=== PATIENT | male | born 1965 | race Caucasian/White ===

== ENCOUNTER 2017-04-23 19:54 | Emergency (ER) | payer SELFPAY ==
[~2017-04-23] VITALS: Ht 175.3 cm; Wt 68.0 kg
[2017-04-23 19:55] VITALS: BP 111/74
--- NOTE | 2017-04-23 20:09 | Emergency Room Report ---
History of Present Illness General Chief Complaint: Altered Level of Consciousness Source: Patient, EMS Present Illness HPI Patient was brought in by paramedics for altered mentation Upon arrival the patient is resting comfortably Responsive to our physical stimuli Patient however is unable to provide appropriate history Paramedics report the patient was in the street and was contacted by the [place] unknown regarding any obvious trauma History of present illness is limited Allergies: Coded Allergies: No Known Allergies (Unverified , 04/23/17) Patient History Limited by: medical condition Past Medical History: see triage record Pertinent Family History: unable to obtain Reviewed Nursing Documentation: PMH: Agreed, PSxH: Agreed Nursing Documentation-PM Past Medical History: No History, Except For History Of Psychiatric Problem: Yes - Depression Review of Systems All Other Systems: limited - Other than the ones mentioned in the history of present illness all others are reviewed however they do stay limited due to the patient's mental status Physical Exam Vital Signs Date Time Temp Pulse Resp B/P (MAP) Pulse Ox O2 Delivery O2 Flow Rate FiO2 04/23/17 19:44 97.9 82 17 111/74 98 Room Air Sp02 EP Interpretation: reviewed, normal General Appearance: no apparent distress Head: normocephalic, atraumatic Eyes: bilateral eye PERRL, bilateral eye EOMI ENT: normal pharynx Neck: supple Respiratory: lungs clear Cardiovascular #1: no edema Gastrointestinal: non tender, soft Musculoskeletal: other - no obvious focal deficit Neurologic: responsive - To physical stimuli Skin: other - disheveled Lymphatic: no adenopathy Medical Decision Making Last Vital Signs Date Time Temp Pulse Resp B/P (MAP) Pulse Ox O2 Delivery O2 Flow Rate FiO2 04/23/17 19:55 97.9 17 111/74 98 Room Air 04/23/17 19:44 82 RAFY SANCHEZ D.O. Apr 23, 2017 20:09
[2017-04-23 20:17] LABS: BASOPHILS % (AUTO) 1.4 % (0.0-2.0); LYMPHOCYTES % (AUTO) 37.7 % (20.0-45.0); MEAN CORPUSCULAR HEMOGLOBIN 29.2 PG (27.0-31.0); MEAN CORPUSCULAR HGB CONC 31.7 G/DL (32.0-36.0); MEAN CORPUSCULAR VOLUME 92 FL (80-99); MEAN PLATELET VOLUME 6.2 FL (6.5-10.1); MONOCYTES % (AUTO) 6.9 % (1.0-10.0); NEUTROPHILS % (AUTO) 54.1 % (45.0-75.0); PLATELET COUNT 213 K/UL (150-450); RED BLOOD COUNT 4.24 M/UL (4.70-6.10); RED CELL DISTRIBUTION WIDTH 14.4 % (11.6-14.8); WHITE BLOOD COUNT 5.4 K/UL (4.8-10.8)
[2017-04-23 20:26] LABS: ALANINE AMINOTRANSFERASE 25 U/L (12-78); ALBUMIN/GLOBULIN RATIO 0.7 (1.0-2.7); ALCOHOL < 3 mg/dL; ANION GAP 8 mmol/L (5-15); ASPARTATE AMINO TRANSFERASE 26 U/L (15-37); CALCIUM 9.1 MG/DL (8.5-10.1); CARBON DIOXIDE 27 MMOL/L (21-32); CHLORIDE 105 MMOL/L (98-107); CREATININE 1.4 MG/DL (0.55-1.30); GLOMERULAR FILTRATION RATE 53.6 mL/min (>60); POTASSIUM 3.8 MMOL/L (3.5-5.1); SODIUM 140 MMOL/L (136-145); TOTAL PROTEIN 7.8 G/DL (6.4-8.2)
[2017-04-23 21:30] VITALS: BP 132/76
[2017-04-24 00:30] VITALS: BP 123/74
[2017-04-24 02:25] VITALS: BP 120/74
[2017-04-24 03:30] VITALS: BP 118/75
--- NOTE | 2017-04-24 05:54 | Emergency Room Report ---
Physical Exam Vital Signs Date Time Temp Pulse Resp B/P (MAP) Pulse Ox O2 Delivery O2 Flow Rate FiO2 04/23/17 19:44 97.9 82 17 111/74 98 Room Air Medical Decision Making Diagnostic Impression: Primary Impression: Substance abuse Additional Impression: Altered level of consciousness ER Course Hospital Course 52-year-old M presents to ED with altered mental status Clinical course Patient initially seen and evaluated by Dr Romeo; please see his note for full history physical Labs reviewed-electrolytes okay, no leukocytosis, hemoglobin/hematocrit stable, tox panel + for multilple substances patient sent to [facility] for head CT; CT brain shows no acute pathology Patient is now awake alert oriented x3, ambulating i. I feel this is a highly complex case requiring extensive working including EKG/Rhythm strip, Xray/CT/US, Blood/urine lab work, repeat exams while in ED, and administration of strong opiates/narcotics for pain control, admission to hospital or close patient follow up. Diagnosis - substance abuse, ALOC Stable and discharged to home. Followup with PMD. Return to ED if symptoms recur or worsen Labs Test 04/23/17 19:55 04/24/17 04:50 White Blood Count 5.4 K/UL (4.8-10.8) Red Blood Count 4.24 M/UL (4.70-6.10) Hemoglobin 12.4 G/DL (14.2-18.0) Hematocrit 39.1 % (42.0-52.0) Mean Corpuscular Volume 92 FL (80-99) Mean Corpuscular Hemoglobin 29.2 PG (27.0-31.0) Mean Corpuscular Hemoglobin Concent 31.7 G/DL (32.0-36.0) Red Cell Distribution Width 14.4 % (11.6-14.8) Platelet Count 213 K/UL (150-450) Mean Platelet Volume 6.2 FL (6.5-10.1) Neutrophils (%) (Auto) 54.1 % (45.0-75.0) Lymphocytes (%) (Auto) 37.7 % (20.0-45.0) Monocytes (%) (Auto) 6.9 % (1.0-10.0) Eosinophils (%) (Auto) 0.0 % (0.0-3.0) Basophils (%) (Auto) 1.4 % (0.0-2.0) Sodium Level 140 MMOL/L (136-145) Potassium Level 3.8 MMOL/L (3.5-5.1) Chloride Level 105 MMOL/L (98-107) Carbon Dioxide Level 27 MMOL/L (21-32) Anion Gap 8 mmol/L (5-15) Blood Urea Nitrogen 24 mg/dL (7-18) Creatinine 1.4 MG/DL (0.55-1.30) Estimat Glomerular Filtration Rate 53.6 mL/min (>60) Glucose Level 94 MG/DL (74-106) Calcium Level 9.1 MG/DL (8.5-10.1) Total Bilirubin 0.3 MG/DL (0.2-1.0) Aspartate Amino Transf (AST/SGOT) 26 U/L (15-37) Alanine Aminotransferase (ALT/SGPT) 25 U/L (12-78) Alkaline Phosphatase 110 U/L (46-116) Total Protein 7.8 G/DL (6.4-8.2) Albumin 3.3 G/DL (3.4-5.0) Globulin 4.5 g/dL Albumin/Globulin Ratio 0.7 (1.0-2.7) Serum Alcohol < 3 mg/dL Urine Opiates Screen Negative (NEGATIVE) Urine Barbiturates Screen Negative (NEGATIVE) Phencyclidine (PCP) Screen Negative (NEGATIVE) Urine Amphetamines Screen Positive (NEGATIVE) Urine Benzodiazepines Screen Negative (NEGATIVE) Urine Cocaine Screen Negative (NEGATIVE) Urine Marijuana (THC) Screen Negative (NEGATIVE) CT/MRI/US Diagnostic Results CT/MRI/US Diagnostic Results : Imaging Test Ordered: CT Head Impression no acute process Last Vital Signs Date Time Temp Pulse Resp B/P (MAP) Pulse Ox O2 Delivery O2 Flow Rate FiO2 04/24/17 03:30 69 13 118/75 98 Room Air 04/23/17 19:55 97.9 Status: improved Disposition: HOME, SELF-CARE Condition: Stable Patient Instructions: Stimulant Use Disorder-ANNE Liang M.D. Apr 24, 2017 05:54
[2017-04-24 06:00] VITALS: BP 113/64
== END 2017-04-24 06:00 | disposition home or self-care (01) ==
LOC: EDBD → EMR 20:50
DX: F19.10 Other psychoactive substance abuse, uncomplicated (principal); R41.82 Altered mental status, unspecified
CPT/HCPCS: 36415; 80053; 80307; 85025; 99284; G0480; 80329

== ENCOUNTER 2017-06-03 16:26 | Emergency (ER) | payer MEDICAID ==
[~2017-06-03] VITALS: Ht 177.8 cm; Wt 63.5 kg
[2017-06-03 17:00] VITALS: BP 124/55
[2017-06-03] MEDS ORDERED: PROMETHAZINE-D118 ML ORAL (17:25)
[2017-06-03] MEDS ORDERED: PROAIR HFA8.5 GM INH (17:25)
--- NOTE | 2017-06-03 18:03 | Emergency Room Report ---
History of Present Illness General Chief Complaint: Upper Respiratory Illness Source: Patient, EMS Present Illness HPI The patient is a 52-year-old male presenting for cough which began today. He denies any known sick contacts or recent travel. He denies any pain. He denies other symptoms including nausea, vomiting, fever, chills, rash, abdominal pain, shortness of breath, chest pain Allergies: Coded Allergies: No Known Allergies (Unverified , 04/23/17) Patient History Past Medical History: see triage record Pertinent Family History: none Reviewed Nursing Documentation: PMH: Agreed, PSxH: Agreed Nursing Documentation-PMH Past Medical History Deferred: No Family Available Past Medical History: No Stated History Review of Systems All Other Systems: negative except mentioned in HPI Physical Exam Vital Signs Date Time Temp Pulse Resp B/P (MAP) Pulse Ox O2 Delivery O2 Flow Rate FiO2 06/03/17 16:21 98.6 106 24 140/64 98 Room Air Sp02 EP Interpretation: reviewed, normal General Appearance: no apparent distress, alert, GCS 15, non-toxic Head: normocephalic, atraumatic Eyes: bilateral eye normal inspection, bilateral eye PERRL ENT: hearing grossly normal, normal pharynx, no angioedema, normal voice Neck: full range of motion, supple/symm/no masses Respiratory: chest non-tender, lungs clear, normal breath sounds, no accessory muscle use, speaking full sentences Cardiovascular #1: regular rate, rhythm, no edema Musculoskeletal: back normal, gait/station normal, normal range of motion, non- tender Neurologic: alert, oriented x3, responsive, motor strength/tone normal, sensory intact, speech normal Psychiatric: judgement/insight normal, memory normal, mood/affect normal, no suicidal/homicidal ideation Skin: normal color, no rash, warm/dry, well hydrated Medical Decision Making PA Attestation Dr. Yao is my supervising physician. Patient management was discussed with my supervising physician Diagnostic Impression: Primary Impression: Bronchitis ER Course The patient is a 52-year-old male presenting for cough which began today. Differential diagnosis include but not limited to pharyngitis, sinusitis, AOM, bronchitis, PNA PE: afebrile. No tachypnea. No apparent distress. No TTP over maxillary or frontal sinuses. Lungs: diffuse wheezing. No accessory muscle use. No resp distress Heart: RRR, no abnormal heart sounds Ears: external auditory canal clear. Non erythematous. Bilat TM intact. Cone of light present bilat. No bulging of TM. No serous fluid seen. no nasal D/C Nor cervical lymphad No tonsillar exudate. Uvula midline.Oropharynx non erythematous CXR unremarkable The patient will be discharged home with a prescription for cough medication and albuterol Chest X-Ray Diagnostic Results Chest X-Ray Diagnostic Results : Chest X-Ray Ordered: Yes # of Views/Limited/Complete: 1 View Indication: Other - cough EP Interpretation: Yes LOREN Xray: Interpretation reviewed, by supervising MD, and agrees with findings. Interpretation: no consolidation, no effusion, no pneumothorax, no acute cardiopulmonary disease Impression: No acute disease Electronically Signed by: Bala Paez PA-C Last Vital Signs Date Time Temp Pulse Resp B/P (MAP) Pulse Ox O2 Delivery O2 Flow Rate FiO2 06/03/17 17:00 98.6 24 124/55 98 Room Air 06/03/17 17:00 106 Status: improved Disposition: HOME, SELF-CARE Condition: Improved Scripts Albuterol Sulfate* (PROAIR HFA*) 8.5 Gm Hfa.aer.ad 2 PUFFS INH Q6H, #8.5 GM 0 Refills Prov: BALA PAEZ 06/03/17 D-Methorphan Hb/Prometh Hcl* (PROMETHAZINE-DM SYRUP*) 118 Ml Syrup 5 ML ORAL Q6H Y for For Cough, #118 ML 0 Refills Prov: BALA PAEZ 06/03/17 Referrals: NOT CHOSEN IPA/,REFERRING (PCP) Patient Instructions: Acute Bronchitis Additional Instructions: I discussed my findings with the patient. All questions and concerns have been answered. Treatment and medication compliance have been addressed. I advised the patient that they need to follow up with PMD in 3-5 days. Return to ED if pain remains or worsens, cough worsens or remains, you notice blood in your sputum, you notice wheezing, you experience a fever, or if needed for any reason. Patient verbalized understanding of discharge instructions. BALA PAEZ Jun 03, 2017 18:02
[2017-06-03 18:30] VITALS: BP 124/55
[2017-06-03] MEDS ORDERED: AZITHROMYCIN250 MG ORAL (20:45)
[2017-06-03] MEDS ORDERED: IBUPROFEN600 MG ORAL (20:45)
--- NOTE | 2017-06-04 10:26 | Diagnostic Imaging Report ---
Indication: Cough Comparison: None A single view chest radiograph was obtained. Findings: Small convex density medial right lung base noted. Further evaluation suggested. Heart size is normal. There is mild prominence of interstitium nonspecific. Bones are unremarkable. Impression: Right medial basilar density. This could be a hiatal hernia. Further evaluation is recommended. PA lateral view of the chest may be a good start. If this is not conclusive CT is suggested.
== END 2017-06-03 19:36 | disposition home or self-care (01) ==
LOC: EDBD 16:26 → EMR 17:55
DX: J40 Bronchitis, not specified as acute or chronic (principal)
CPT/HCPCS: 71010; 99284

== ENCOUNTER 2017-06-03 19:28 | Emergency (ER) | payer MEDICAID ==
[~2017-06-03] VITALS: Ht 177.8 cm; Wt 68.0 kg
[~2017-06-03 19:28] MED LIST: Acetaminophen 500mg (ES) tab ORAL ONE; Azithromycin 250mg tab ORAL ONE; PROAIR HFA8.5 GM INH; PROMETHAZINE-D118 ML ORAL
[2017-06-03] MEDS ORDERED: IBUPROFEN600 MG ORAL (20:45)
[2017-06-03] MEDS ORDERED: AZITHROMYCIN250 MG ORAL (20:45)
[2017-06-03 20:52] VITALS: BP 136/87
[2017-06-03 20:57] VITALS: BP 136/87
--- NOTE | 2017-06-03 21:47 | Emergency Room Report ---
History of Present Illness General Chief Complaint: General Complaint Source: Patient Present Illness HPI The patient is a 52-year-old male brought in by EMS for cough and fever. He was seen in this emergency department earlier today for cough. Chest x-ray was done at that time and the patient was diagnosed with bronchitis. He states that he thinks this is pneumonia. He states he has developed a fever. Pain is a 10 out of 10 dull ache to the mid chest which occurs with coughing only. He denies other symptoms including hemoptysis, nausea, vomiting, shortness of breath Allergies: Coded Allergies: No Known Allergies (Unverified , 04/23/17) Patient History Past Medical History: see triage record Pertinent Family History: none Reviewed Nursing Documentation: PMH: Agreed, PSxH: Agreed Nursing Documentation-PMH Past Medical History: No History, Except For Review of Systems All Other Systems: negative except mentioned in HPI Physical Exam Vital Signs Date Time Temp Pulse Resp B/P (MAP) Pulse Ox O2 Delivery O2 Flow Rate FiO2 06/03/17 19:04 102.6 132 14 139/84 97 97 Sp02 EP Interpretation: reviewed, normal General Appearance: no apparent distress, alert, GCS 15, non-toxic Head: normocephalic, atraumatic Eyes: bilateral eye normal inspection, bilateral eye PERRL ENT: hearing grossly normal, normal pharynx, no angioedema, normal voice Respiratory: chest non-tender, lungs clear, normal breath sounds, no wheezing, speaking full sentences Cardiovascular #1: regular rate, rhythm, no edema Musculoskeletal: back normal, gait/station normal, normal range of motion, non- tender Neurologic: alert, oriented x3, responsive, motor strength/tone normal, sensory intact, speech normal Psychiatric: judgement/insight normal, memory normal, mood/affect normal, no suicidal/homicidal ideation Skin: normal color, no rash, warm/dry, well hydrated Medical Decision Making PA Attestation Dr. Yao is my supervising physician. Patient management was discussed with my supervising physician Diagnostic Impression: Primary Impression: Atypical pneumonia ER Course The patient is a 52-year-old male brought in by EMS for cough and fever. Differential diagnosis include but not limited to pharyngitis, sinusitis, AOM, bronchitis, PNA PE: Febrile. No tachypnea. No apparent distress. No TTP over maxillary or frontal sinuses. Lungs: no wheezing. No accessory muscle use. No resp distress Heart: RRR, no abnormal heart sounds Ears: external auditory canal clear. Non erythematous. Bilat TM intact. Cone of light present bilat. No bulging of TM. No serous fluid seen. no nasal D/C Nor cervical lymphad No tonsillar exudate. Uvula midline.Oropharynx non erythematous CXR was done hours prior at the patient's last visit. No clear signs of pneumonia Fever was controlled in the ER with both Motrin and Tylenol. He was given first dose of antibiotics here. The patient will be discharged home with a prescription for Motrin and azithromycin Last Vital Signs Date Time Temp Pulse Resp B/P (MAP) Pulse Ox O2 Delivery O2 Flow Rate FiO2 06/03/17 20:57 99.0 76 20 136/87 98 97 Status: improved Disposition: HOME, SELF-CARE Condition: Improved Scripts Ibuprofen* (MOTRIN*) 600 Mg Tablet 600 MG ORAL Q8H Y for For Pain, #30 TAB 0 Refills Prov: LORELEI PAEZ 06/03/17 Azithromycin* (ZITHROMAX*) 250 Mg Tablet 250 MG ORAL DAILY for 4 Days, TAB 0 Refills Prov: LORELEI PAEZ.Verna. 06/03/17 Patient Instructions: Cough, Adult Additional Instructions: I discussed my findings with the patient. All questions and concerns have been answered. Treatment and medication compliance have been addressed. I advised the patient that they need to follow up with PMD in 3-5 days. Return to ED if pain remains or worsens, cough worsens or remains, you notice blood in your sputum, you notice wheezing, you experience a fever, or if needed for any reason. Patient verbalized understanding of discharge instructions. LORELEI PAEZ Jun 03, 2017 21:47
== END 2017-06-03 20:58 | disposition home or self-care (01) ==
LOC: EDBD 19:28 → EMR 19:40
DX: J18.9 Pneumonia, unspecified organism (principal)
CPT/HCPCS: 99284; Q0144

== ENCOUNTER 2017-07-24 16:54 | Emergency (ER) | payer MEDICAID ==
[~2017-07-24] VITALS: Ht 177.8 cm; Wt 63.5 kg
[2017-07-24 16:54] VITALS: BP 140/97
[~2017-07-24 16:54] MED LIST changes: +AZITHROMYCIN250 MG ORAL; -Acetaminophen 500mg (ES) tab ORAL ONE; -Azithromycin 250mg tab ORAL ONE; +IBUPROFEN600 MG ORAL
[2017-07-24] MEDS ORDERED: Sodium Chloride 500ML 500 ML IV ONE (16:59)
--- NOTE | 2017-07-24 17:12 | Emergency Room Report ---
History of Present Illness General Chief Complaint: Syncope Source: Patient Present Illness HPI Patient presents with complaints of syncope Patient was brought in by paramedics There was a report that the patient had been feeling weak and lightheaded after smoking marijuana Here the patient appears somewhat slow to respond has multiple abrasions and evidence of trauma There was a history of HIV Patient is not reporting any pain to his at this time history of present illness remains very limited Unknown regarding specific episode Allergies: Coded Allergies: No Known Allergies (Unverified , 04/23/17) Patient History Past Medical History: see triage record Pertinent Family History: none Reviewed Nursing Documentation: PMH: Agreed, PSxH: Agreed Nursing Documentation-PM Past Medical History: No History, Except For Review of Systems All Other Systems: limited - Other than the ones mentioned in the history of present illness all others are reviewed however they do stay limited due to the patient's mental status Physical Exam Vital Signs Date Time Temp Pulse Resp B/P (MAP) Pulse Ox O2 Delivery O2 Flow Rate FiO2 07/24/17 16:39 97.5 74 16 138/96 100 Room Air Sp02 EP Interpretation: reviewed, normal General Appearance: no apparent distress Head: normocephalic, other - Several abrasions anterior scalp Eyes: bilateral eye PERRL, bilateral eye other - Bilateral conjunctiva are injected ENT: normal pharynx, no angioedema Neck: supple Respiratory: lungs clear, normal breath sounds Cardiovascular #1: regular rate, rhythm Gastrointestinal: non tender, soft Musculoskeletal: normal inspection Neurologic: alert, responsive - Initially slow to respond however patient becoming more oriented and responsive Skin: other - Several abrasions including scalp as noted above, also left dorsal hand and wrist Lymphatic: no adenopathy Medical Decision Making Diagnostic Impression: Primary Impression: Syncope ER Course Patient is a fairly complex patient with multiple differential to consideration including but not limited to cardiac cardiopulmonary and vascular emergencies Given the patient's abrasions on the frontal scalp area CT head was also performed Negative for any acute pathology Baseline blood work and workup is negative EKG was appropriate At this time patient remains hemodynamically stable Is awake and alert Patient had reported marijuana use however tested positive for amphetamine Patient is no aware of amphetamine use Nevertheless at this time given the patient's benign fairly extensive workup Remaining hemodynamically stable Patient is a candidate for initial outpatient followup Labs Test 07/24/17 18:21 White Blood Count 4.1 K/UL (4.8-10.8) Red Blood Count 4.70 M/UL (4.70-6.10) Hemoglobin 14.2 G/DL (14.2-18.0) Hematocrit 43.0 % (42.0-52.0) Mean Corpuscular Volume 92 FL (80-99) Mean Corpuscular Hemoglobin 30.3 PG (27.0-31.0) Mean Corpuscular Hemoglobin Concent 33.1 G/DL (32.0-36.0) Red Cell Distribution Width 14.8 % (11.6-14.8) Platelet Count 176 K/UL (150-450) Mean Platelet Volume 6.9 FL (6.5-10.1) Neutrophils (%) (Auto) 60.2 % (45.0-75.0) Lymphocytes (%) (Auto) 26.9 % (20.0-45.0) Monocytes (%) (Auto) 11.7 % (1.0-10.0) Eosinophils (%) (Auto) 0.1 % (0.0-3.0) Basophils (%) (Auto) 1.2 % (0.0-2.0) Sodium Level 140 MMOL/L (136-145) Potassium Level 3.6 MMOL/L (3.5-5.1) Chloride Level 102 MMOL/L (98-107) Carbon Dioxide Level 30 MMOL/L (21-32) Anion Gap 9 mmol/L (5-15) Blood Urea Nitrogen 11 mg/dL (7-18) Creatinine 0.8 MG/DL (0.55-1.30) Estimat Glomerular Filtration Rate > 60 mL/min (>60) Glucose Level 78 MG/DL (74-106) Calcium Level 8.8 MG/DL (8.5-10.1) Total Bilirubin 0.4 MG/DL (0.2-1.0) Aspartate Amino Transf (AST/SGOT) 29 U/L (15-37) Alanine Aminotransferase (ALT/SGPT) 40 U/L (12-78) Alkaline Phosphatase 142 U/L (46-116) Total Creatine Kinase 116 U/L (26-308) Creatine Kinase MB 3.9 NG/ML (0.0-3.6) Creatine Kinase MB Relative Index 3.3 Troponin I 0.000 ng/mL (0.000-0.056) Total Protein 8.2 G/DL (6.4-8.2) Albumin 3.5 G/DL (3.4-5.0) Globulin 4.7 g/dL Albumin/Globulin Ratio 0.7 (1.0-2.7) Urine Opiates Screen Negative (NEGATIVE) Urine Barbiturates Screen Negative (NEGATIVE) Phencyclidine (PCP) Screen Negative (NEGATIVE) Urine Amphetamines Screen Positive (NEGATIVE) Urine Benzodiazepines Screen Negative (NEGATIVE) Urine Cocaine Screen Negative (NEGATIVE) Urine Marijuana (THC) Screen Negative (NEGATIVE) EKG Diagnostic Results Rate: normal Rhythm: NSR ST Segments: other - nonspecific ST T-wave changes Rhythm Strip Diag. Results EP Interpretation: yes Rate: 77 Rhythm: NSR, no PVC's, no ectopy Chest X-Ray Diagnostic Results Chest X-Ray Diagnostic Results : Chest X-Ray Ordered: Yes # of Views/Limited/Complete: 1 View Indication: Chest Pain EP Interpretation: Yes Interpretation: no consolidation, no effusion, no pneumothorax, other - Some questionable increased markings in the right perihilar area Impression: No acute disease Electronically Signed by: Pati Sanchez, DO CT/MRI/US Diagnostic Results CT/MRI/US Diagnostic Results : Impression CT head no acute disease Last Vital Signs Date Time Temp Pulse Resp B/P (MAP) Pulse Ox O2 Delivery O2 Flow Rate FiO2 07/24/17 16:39 97.5 74 16 138/96 100 Room Air Status: improved Disposition: HOME, SELF-CARE Condition: Improved Additional Instructions: Patient is provided with the discharge instructions notified to follow up with primary doctor in the next 2-3 days otherwise return to the er with any worsening symptoms. Please note that this report is being documented using [employer] technology. This can lead to erroneous entry secondary to incorrect interpretation by the dictating instrument. PATI SANCHEZ D.O. Jul 24, 2017 17:12
[2017-07-24 19:01] LABS: ANION GAP 9 mmol/L (5-15); BLOOD UREA NITROGEN 11 mg/dL (7-18); CALCIUM 8.8 MG/DL (8.5-10.1); CARBON DIOXIDE 30 MMOL/L (21-32); CHLORIDE 102 MMOL/L (98-107); CREATININE 0.8 MG/DL (0.55-1.30); POTASSIUM 3.6 MMOL/L (3.5-5.1); SODIUM 140 MMOL/L (136-145)
[2017-07-24 19:05] LABS: BASOPHILS % (AUTO) 1.2 % (0.0-2.0); EOSINOPHILS % (AUTO) 0.1 % (0.0-3.0); HEMOGLOBIN 14.2 G/DL (14.2-18.0); LYMPHOCYTES % (AUTO) 26.9 % (20.0-45.0); MEAN CORPUSCULAR VOLUME 92 FL (80-99); MONOCYTES % (AUTO) 11.7 % (1.0-10.0); NEUTROPHILS % (AUTO) 60.2 % (45.0-75.0); PLATELET COUNT 176 K/UL (150-450); RED CELL DISTRIBUTION WIDTH 14.8 % (11.6-14.8); WHITE BLOOD COUNT 4.1 K/UL (4.8-10.8)
[2017-07-24 19:15] LABS: ALANINE AMINOTRANSFERASE 40 U/L (12-78); ALBUMIN 3.5 G/DL (3.4-5.0); ALBUMIN/GLOBULIN RATIO 0.7 (1.0-2.7); ALKALINE PHOSPHATASE 142 U/L (46-116); ASPARTATE AMINO TRANSFERASE 29 U/L (15-37); BILIRUBIN,TOTAL 0.4 MG/DL (0.2-1.0); CKMB 3.9 NG/ML (0.0-3.6); CREATINE KINASE 116 U/L (26-308)
[2017-07-24 20:20] VITALS: BP 134/90
[2017-07-24 20:41] VITALS: BP 140/97
--- NOTE | 2017-07-25 08:27 | Diagnostic Imaging Report ---
Indication: Head trauma, altered mental status Technique: Continuous helical CT scanning of the head was performed without intravenous contrast material. Axial and coronal 5 mm sections were generated. Radiation dose was minimized using automated exposure control Dose: Total Dose Length Product - DLP 2231.[address] Dose Index - CTDIvol(s) 70.38,70.38 mGy. Comparison: none Findings: There is some image degradation due to motion artifact. The ventricular system is normal in size and configuration. There is no shift of midline structures. No abnormal extra-axial fluid collections are noted. There is no evidence of intracerebral bleeding. No other abnormal high or low density areas are noted within the brain. The right maxillary sinus is nearly completely opacified. There is also opacification of ethmoid air cells on the right. The calvarium is intact. Impression: Normal CT scan of the head without contrast material. Incidental finding of sinus disease This agrees with the preliminary interpretation provided overnight by [facility] telerad[facility] service. The CT scanner at [facility] [place] is accredited by the [employer] and the scans are performed using protocols designed to limit radiation exposure to as low as reasonably achievable to attain images of sufficient resolution adequate for diagnostic evaluation.
--- NOTE | 2017-07-25 11:37 | Diagnostic Imaging Report ---
Indication: Chest pain Technique: One view of the chest Comparison: 06/03/2017 Findings: Very vague faint parenchymal opacities in the right midlung most likely artifact due to overlying soft tissue shadows, but faint infiltrates are possibility. The lungs and pleural spaces are otherwise clear. Heart size normal Impression: Doubt but cannot completely exclude faint patchy right lung infiltrates. Correlate with clinical findings. No acute process otherwise
--- NOTE | 2017-08-02 18:48 | Cardiology Report ---
APPROVED REPORT EKG Measurement Heart [id number] Sinus rhythm with premature atrial complexes Anterior infarct, age undetermined Abnormal ECG
== END 2017-07-24 20:43 | disposition home or self-care (01) ==
LOC: EDBD 16:54 → EMR 17:30
DX: R55 Syncope and collapse (principal); S00.01XA Abrasion of scalp, initial encounter; S60.512A Abrasion of left hand, initial encounter; S60.812A Abrasion of left wrist, initial encounter; W19.XXXA Unspecified fall, initial encounter; Y92.9 Unspecified place or not applicable; R07.9 Chest pain, unspecified
CPT/HCPCS: 36415; 70450; 71045; 80053; 80307; 82550; 82553; 84484; 85025; 93005; 96360; 99284

== ENCOUNTER 2018-02-26 08:08 | Inpatient (IN) | payer MEDICAID ==
[~2018-02-26] VITALS: Ht 177.8 cm; Wt 59.0 kg
[2018-02-26 08:54] LABS: BASOPHILS % (AUTO) 1.3 % (0.0-2.0); HEMATOCRIT 41.6 % (42.0-52.0); HEMOGLOBIN 13.9 G/DL (14.2-18.0); LYMPHOCYTES % (AUTO) 20.2 % (20.0-45.0); MEAN CORPUSCULAR VOLUME 88 FL (80-99); NEUTROPHILS % (AUTO) 70.5 % (45.0-75.0); PLATELET COUNT 201 K/UL (150-450); RED BLOOD COUNT 4.73 M/UL (4.70-6.10); RED CELL DISTRIBUTION WIDTH 13.6 % (11.6-14.8); WHITE BLOOD COUNT 4.5 K/UL (4.8-10.8)
[2018-02-26 09:00] VITALS: BP 134/85
[2018-02-26 09:02] LABS: APPEARANCE,URINE CLEAR; BILIRUBIN, URINE NEGATIVE (NEGATIVE); GLUCOSE, URINE (UA) NEGATIVE (NEGATIVE); KETONES,URINE NEGATIVE (NEGATIVE); LEUKOCYTE ESTERASE ,URINE NEGATIVE (NEGATIVE); NITRITE,URINE NEGATIVE (NEGATIVE); PH,URINE 7 (4.5-8.0); PROTEIN,URINE NEGATIVE (NEGATIVE); UROBILINOGEN,URINE 1 MG/DL (0.0-1.0)
[2018-02-26 09:06] LABS: COLOR,URINE YELLOW
[2018-02-26 09:13] LABS: ANION GAP 8 mmol/L (5-15); BLOOD UREA NITROGEN 10 mg/dL (7-18); CALCIUM 8.8 MG/DL (8.5-10.1); CARBON DIOXIDE 29 MMOL/L (21-32); CHLORIDE 103 MMOL/L (98-107); CREATININE 0.8 MG/DL (0.55-1.30); POTASSIUM 3.8 MMOL/L (3.5-5.1); SODIUM 140 MMOL/L (136-145)
--- NOTE | 2018-02-26 09:32 | Diagnostic Imaging Report ---
Indication: Headache. Head trauma Technique: Contiguous 5 mm thick transaxial imaging of the head obtained in a Siemens Sensation [address] scanner. Soft tissue and bone windows generated. Automatic Exposure Control was utilized. Total Dose length Product (DLP): 1369.[address] Dose Index Volume (CTDIvol): 70.38 mGy Comparison: 07/24/2017 Findings: The size and configuration of the cortical sulci, basal cisterns, and ventricles are within normal limits for age. There is no mass effect, midline shift, or edema identified. There is no evidence of acute hemorrhage or abnormal intra-axial or extra-axial fluid collections. The bones and soft tissues are unremarkable. Impression: No mass effect, edema or acute bleed. The CT scanner at [facility] is accredited by the [employer] and the scans are performed using dose optimization techniques as appropriate to a performed exam including Automatic Exposure control.
[2018-02-26 09:46] LABS: ALANINE AMINOTRANSFERASE 36 U/L (12-78); ALBUMIN 3.1 G/DL (3.4-5.0); ALBUMIN/GLOBULIN RATIO 0.6 (1.0-2.7); ALKALINE PHOSPHATASE 167 U/L (46-116); ASPARTATE AMINO TRANSFERASE 35 U/L (15-37); BILIRUBIN,TOTAL 0.2 MG/DL (0.2-1.0); CREATINE KINASE 200 U/L (26-308)
[2018-02-26 10:00] VITALS: BP 130/79
--- NOTE | 2018-02-26 10:46 | Diagnostic Imaging Report ---
Indication: Dyspnea Comparison: 07/24/2017 A single view chest radiograph was obtained. Findings: Cardiomediastinal appearance is within normal limits for age. Pulmonary vascularity is appropriate. The diaphragmatic contour is smooth and costophrenic angles are sharp. No pleural effusions are identified. The bones are unremarkable. Impression: No acute findings
[2018-02-26 11:00] VITALS: BP 130/81
[2018-02-26] MEDS ORDERED: Ketorolac 30mg Inj IV ONE (11:00)
--- NOTE | 2018-02-26 11:04 | Emergency Room Report ---
History of Present Illness General Chief Complaint: Dizziness Source: Patient, EMS Present Illness HPI This patient presents from the street. He he states he resides in a board and care facility. He states he has a history of HIV and hepatitis C. He states that he has been out of his medications for at least 2 weeks and has not been taking them. He complains of throat pain. He states very painful to swallow. He states that he has been unable to drink much water or eat food. He denies nausea or vomiting. He denies fever or chills. He denies chest pain or shortness of breath. He presents today after a presyncopal episode. He states that he became lightheaded and fell to the ground. He states he did not actually lose consciousness. He states he almost did but was awake the entire time. He denies head trauma or other trauma. He has no other complaints. Allergies: Coded Allergies: No Known Allergies (Unverified , 04/23/17) Patient History Past Medical History: see triage record, HIV, other - HCV Social History: Reports: alcohol use, drug use; Denies: smoking Reviewed Nursing Documentation: PMH: Agreed; PSxH: Agreed Nursing Documentation-PMH Past Medical History: No History, Except For Hx Cardiac Problems: No - HIV AND HEP C Review of Systems All Other Systems: negative except mentioned in HPI Physical Exam Vital Signs Date Time Temp Pulse Resp B/P (MAP) Pulse Ox O2 Delivery O2 Flow Rate FiO2 02/26/18 08:00 97.2 86 18 141/61 98 Room Air 97.2 Sp02 EP Interpretation: reviewed, normal General Appearance: no apparent distress, alert, GCS 15, non-toxic Head: normocephalic, atraumatic Eyes: bilateral eye normal inspection, bilateral eye PERRL ENT: hearing grossly normal, normal pharynx, no angioedema, normal voice Neck: full range of motion, supple/symm/no masses Respiratory: chest non-tender, lungs clear, normal breath sounds, no respiratory distress, no retraction, no accessory muscle use, speaking full sentences Cardiovascular #1: regular rate, rhythm, no edema Gastrointestinal: normal bowel sounds, non tender, soft, non-distended, no guarding, no rebound Rectal: deferred Musculoskeletal: back normal, gait/station normal, normal range of motion, non- tender Neurologic: alert, oriented x3, responsive, motor strength/tone normal, sensory intact, speech normal Psychiatric: judgement/insight normal, memory normal, mood/affect normal, no suicidal/homicidal ideation Skin: normal color, no rash, warm/dry, well hydrated Medical Decision Making Diagnostic Impression: Primary Impression: Pre-syncope Additional Impressions: Esophagitis HIV (human immunodeficiency virus infection) ER Course This patient has a history of HIV and has been noncompliant with his antiretroviral therapy. He presents with history concerning for esophagitis and pre-syncope. He is immunocompromised and so could have a fungal esophagitis. I'm concerned that he became dehydrated secondary to having pain with swallowing and therefore had a presyncopal episode. There is no evidence of cardiac pathology or etiology at this time. Laboratory workup is otherwise benign. The patient's blood sugar was slightly low at 64. This patient will be admitted for further evaluation and treatment and monitoring as an inpatient. Laboratory Tests Test 02/26/18 08:36 02/26/18 08:56 White Blood Count 4.5 K/UL (4.8-10.8) L Red Blood Count 4.73 M/UL (4.70-6.10) Hemoglobin 13.9 G/DL (14.2-18.0) L Hematocrit 41.6 % (42.0-52.0) L Mean Corpuscular Volume 88 FL (80-99) Mean Corpuscular Hemoglobin 29.4 PG (27.0-31.0) Mean Corpuscular Hemoglobin Concent 33.4 G/DL (32.0-36.0) Red Cell Distribution Width 13.6 % (11.6-14.8) Platelet Count 201 K/UL (150-450) Mean Platelet Volume 7.1 FL (6.5-10.1) Neutrophils (%) (Auto) 70.5 % (45.0-75.0) Lymphocytes (%) (Auto) 20.2 % (20.0-45.0) Monocytes (%) (Auto) 8.0 % (1.0-10.0) Eosinophils (%) (Auto) 0.0 % (0.0-3.0) Basophils (%) (Auto) 1.3 % (0.0-2.0) Prothrombin Time 10.9 SEC (9.30-11.50) Prothrombin Time INR 1.0 (0.9-1.1) PTT 31 SEC (23-33) Sodium Level 140 MMOL/L (136-145) Potassium Level 3.8 MMOL/L (3.5-5.1) Chloride Level 103 MMOL/L (98-107) Carbon Dioxide Level 29 MMOL/L (21-32) Anion Gap 8 mmol/L (5-15) Blood Urea Nitrogen 10 mg/dL (7-18) Creatinine 0.8 MG/DL (0.55-1.30) Estimate Glomerular Filtration Rate > 60 mL/min (>60) Glucose Level 64 MG/DL (74-106) L Calcium Level 8.8 MG/DL (8.5-10.1) Total Bilirubin 0.2 MG/DL (0.2-1.0) Aspartate Amino Transferase (AST) 35 U/L (15-37) Alanine Aminotransferase (ALT) 36 U/L (12-78) Alkaline Phosphatase 167 U/L (46-116) H Total Creatine Kinase 200 U/L (26-308) Creatine Kinase MB 5.0 NG/ML (0.0-3.6) H Creatine Kinase MB Relative Index 2.5 Troponin I 0.000 ng/mL (0.000-0.056) Total Protein 8.3 G/DL (6.4-8.2) H Albumin 3.1 G/DL (3.4-5.0) L Globulin 5.2 g/dL Albumin/Globulin Ratio 0.6 (1.0-2.7) L Serum Alcohol < 3 mg/dL Urine Color Yellow Urine Appearance Clear Urine pH 7 (4.5-8.0) Urine Specific [place] 1.010 (1.005-1.035) Urine Protein Negative (NEGATIVE) Urine Glucose (UA) Negative (NEGATIVE) Urine Ketones Negative (NEGATIVE) Urine Blood Negative (NEGATIVE) Urine Nitrite Negative (NEGATIVE) Urine Bilirubin Negative (NEGATIVE) Urine Urobilinogen 1 MG/DL (0.0-1.0) H Urine Leukocyte Esterase Negative (NEGATIVE) Urine Opiates Screen Negative (NEGATIVE) Urine Barbiturates Screen Negative (NEGATIVE) Phencyclidine (PCP) Screen Negative (NEGATIVE) Urine Amphetamines Screen Positive (NEGATIVE) H Urine Benzodiazepines Screen Negative (NEGATIVE) Urine Cocaine Screen Negative (NEGATIVE) Urine Marijuana (THC) Screen Positive (NEGATIVE) H EKG Diagnostic Results Rate: normal Rhythm: NSR ST Segments: no acute changes Rhythm Strip Diag. Results EP Interpretation: yes Rate: 80's Rhythm: NSR, no PVC's, no ectopy Chest X-Ray Diagnostic Results Chest X-Ray Diagnostic Results : Chest X-Ray Ordered: Yes # of Views/Limited/Complete: 1 View Indication: Other Interpretation: no consolidation, no effusion, no pneumothorax, no acute cardiopulmonary disease Impression: No acute disease Electronically Signed by: Kraolina CT/MRI/US Diagnostic Results CT/MRI/US Diagnostic Results : Imaging Test Ordered: CT head Impression No acute findings. See official report in EMR. Last Vital Signs Date Time Temp Pulse Resp B/P (MAP) Pulse Ox O2 Delivery O2 Flow Rate FiO2 02/26/18 08:00 97.2 86 18 141/61 98 Room Air 97.2 Disposition: ADMITTED INPATIENT Condition: Stable Referrals: NOT CHOSEN IPA/,REFERRING (PCP) Jessika Natarajan DO Feb 26, 2018 11:04
[2018-02-26 13:09] VITALS: BP 136/81
[2018-02-26] MEDS ORDERED: D5NS 1,000 ML IV SCH (14:15)
[2018-02-26 14:32] VITALS: BP 139/89
[2018-02-26 15:44] VITALS: BP 118/82
--- NOTE | 2018-02-27 08:25 | Discharge Summary ---
Discharge Summary Discharge Summary _ DATE OF ADMISSION: 02/26/2018 DATE OF DISCHARGE: 02/26/2018. Patient signed AGAINST MEDICAL ADVICE REASON FOR ADMISSION: 52 years old male with history of HIV and hepatitis C, presented from the street with complaint of difficulty swallowing and presyncopal episode. Patient was unable to keep food or fluids down due to difficulty swallowing. He also reported feeling dizzy and falling on the ground. He denied loss of consciousness. He denied head trauma. No fever, no chills. No nausea , no vomiting. No chest pain, no shortness of breath. Patient reported being off medication for at least 2 weeks Upon presentation vital signs were stable. WBC 4.5, hemoglobin 13.9, hematocrit 41.6. Electrolytes were stable. Troponin was negative. EKG revealed sinus rhythm, no acute ischemic changes. BUN 10 and creatinine 0.8. CK 200. LFT within normal limits.. Urinalysis without evidence of UTI. Urine toxicology screen was positive for amphetamine and marijuana. CT of the head revealed no acute intracranial pathology. Chest x-ray revealed no acute cardiopulmonary pathology Patient admitted with diagnoses of presyncope, possible esophagitis ,HIV status , possible dehydration, polysubstance abuse, noncompliance HOSPITAL COURSE: Patient admitted to the hospital. Patient started on IV hydration. Swallow evaluation was ordered. ID consult was requested to help with antiretroviral therapy. solid waste collection worker met with patient. Patient admitted being homeless , may consider senior living or recuperative care upon discharge. Supportive care provided . Patient decided to sign AGAINST MEDICAL ADVICE. The risks and consequences of signing AGAINST MEDICAL ADVICE were discussed with patient in detail. Patient verbalized understanding, nevertheless signed AMA form and left. FINAL DIAGNOSES: Presyncope , likely secondary to dehydration Pain with swallowing, possible esophagitis Probable dehydration due to painful swallowing HIV status Polysubstance-abuse (amphetamine, marijuana) Noncompliance I have been assigned to dictate discharge summary for this account. I was not involved in the patient's management. Ximena Rose NP Feb 27, 2018 08:25
--- NOTE | 2018-02-27 15:45 | Cardiology Report ---
APPROVED REPORT EKG Measurement Heart [id number] Normal sinus rhythm Normal ECG
--- NOTE | 2018-02-27 19:45 | History and Physical Report ---
DATE OF ADMISSION: 02/26/2018 HISTORY OF PRESENT ILLNESS: This is a 52-year-old male with history of HIV positivity and chronic hepatitis C. He states he ran out of his medications. He is complaining of throat pain. He states he is unable to swallow. He cannot eat or drink any food. He came to the emergency room and was admitted to the hospital with . Later on after admission, the patient became agitated, was asking for pain medications and subsequently on my arrival, he was in the process of signing out AMA. PAST HISTORY: HIV and chronic hepatitis C. SOCIAL HISTORY: No history of alcohol or tobacco use. ALLERGIES: None. MEDICATIONS: None. REVIEW OF SYSTEMS: The patient denies any headaches, hematemesis, melena, or hematochezia. PHYSICAL EXAMINATION: GENERAL: Reveals a 52-year-old male. HEENT: Unremarkable. LUNGS: Clear breath sounds bilaterally. ABDOMEN: Soft. NEUROLOGIC: Nonfocal. LABORATORY AND DIAGNOSTIC DATA: Lab testing shows hemoglobin 13.9, otherwise normal CBC and BMP. His albumin 3.1, glucose 64. Imaging studies, chest x-ray is negative. Head CT is also negative. IMPRESSION: 1. HIV positivity. 2. Chronic hepatitis C. 3. Hypoalbuminemia. 4. Malnutrition. 5. Possible hepatitis. DISCUSSION: At this time, the patient is keen on leaving AMA. I have advised him that it is best if he stays in the hospital and I can consult GI for consideration of endoscopy, however, the patient declined. The patient will leave PERCIVAL. Noah Davidson M.D. DR: CORNELIUS JOB#: [id number] CC:
== END 2018-02-26 18:36 | disposition left against medical advice (07) | DRG 894 ==
LOC: EDBD 08:08 → EMR 08:22 → 4W 11:17 → EDBEDREQ 11:57
DX: E86.0 Dehydration (principal); B20 Human immunodeficiency virus [HIV] disease; E46 Unspecified protein-calorie malnutrition; R13.19 Other dysphagia; R55 Syncope and collapse; K20.9 Esophagitis, unspecified; B18.2 Chronic viral hepatitis C; Z59.0 Homelessness; Z91.14 Patient's other noncompliance with medication regimen; F15.10 Other stimulant abuse, uncomplicated; F12.10 Cannabis abuse, uncomplicated; Z68.1 Body mass index [BMI] 19.9 or less, adult
CPT/HCPCS: 36415; 70450; 71045; 80053; 80307; 80329; 81003; 82550; 82553; 82962; 84484; 85025; 85610; 85730; 87081; 93005